=== PATIENT | female | born 1955 | race Caucasian/White ===

== ENCOUNTER 2017-09-28 08:32 | Inpatient (IN) ==
[2017-09-21 16:20] LABS: Appearance,Urine CLEAR; Bilirubin,Urine NEG (NEG); Color,Urine YELLOW; Glucose,Urine (UA) NEGATIVE (NEG); Leukocyte Esterase,Urine NEG /uL (NEG); Nitrate,Urine NEG (NEG); Protein,Urine NEG (NEG); Specific Gravity,Urine 1.021 (1.000-1.035); Urine Blood NEG mg/dL (<0.03); Urobilinogen,Urine NEG (NEG)
[2017-09-21 16:23] LABS: Basophils # (Auto) 0 K/mcL (0.0-0.3); Basophils % (Auto) 0.3 % (0.0-2.0); Eosinophils # (Auto) 0.5 K/mcL (0.0-0.7); Eosinophils % (Auto) 5.9 % (0.0-7.0); Granulocytes % (Auto) 75.7 % (38.0-78.0); Lymphocytes % (Auto) 10.7 % (15.5-49.0); Mean Cell Volume 87.7 fL (80.0-100.0); Mean Corpuscular HGB Conc 33.9 g/dL (31.0-36.0); Mean Corpuscular Hemoglobin 29.7 pg (26.0-34.0); Monocytes # (Auto) 0.7 K/mcL (0.1-0.9); Monocytes % (Auto) 7.4 % (1.0-12.0); Platelet Count 246 K/mcL (140-440); RBC 4.38 M/mcL (4.00-5.20); Red Cell Distribution Width 14.2 % (11.5-14.5)
[2017-09-21 16:35] LABS: Blood Urea Nitrogen 18 mg/dl (8-23)
[~2017-09-28 08:32] MED LIST: CELECOXIB 200 MG CAPSULE PO SCH; PREGABALIN 75 MG CAPSULE PO SCH; ceFAZolin 1 GM VIAL IV SCH; oxyCODONE 10 MG TAB.ER.12H PO SCH
[2017-09-28] MEDS ORDERED: ONDANSETRON 4 MG/2 ML VIAL IV ONE (11:14)
[2017-09-28] MEDS ORDERED: PROPOFOL 200 MG/20 ML VIAL IV ONE (11:14)
[2017-09-28] MEDS ORDERED: MIDAZOLAM 2 MG/2 ML VIAL IV ONE (11:14)
[2017-09-28] MEDS ORDERED: TRANEXAMIC ACID 1,000 MG/10 ML VIAL IV ONE ×2 (11:14→13:12)
[2017-09-28] MEDS ORDERED: fentaNYL 100 MCG/2 ML VIAL IV ONE (11:14)
[2017-09-28] MEDS ORDERED: KETAMINE 100 MG/ML ML IV ONE (11:14)
[2017-09-28] MEDS ORDERED: LIDOCAINE HCL/PF 100 MG/5 ML SYRINGE IV ONE (11:14)
[2017-09-28] MEDS ORDERED: GLYCOPYRROLATE 0.2 MG/ML VIAL IV ONE (11:14)
[2017-09-28] MEDS ORDERED: KETOROLAC 15 MG/ML VIAL IV PRN (12:37)
[2017-09-28] MEDS ORDERED: ONDANSETRON 4 MG/2 ML VIAL IV PRN ×2 (12:37→13:12)
[2017-09-28] MEDS ORDERED: METHOCARBAMOL 1,000 MG/10 ML VIAL IV PRN (12:37)
[2017-09-28] MEDS ORDERED: ACETAMINOPHEN 1,000 MG/100 ML BOTTLE IV ONE (12:37)
[2017-09-28] MEDS ORDERED: IPRATROPIUM/ALBUTEROL 3 ML AMPUL.NEB NEB PRN (12:37)
[2017-09-28] MEDS ORDERED: MEPERIDINE 25 MG/ML SYRINGE IV PRN (12:37)
[2017-09-28] MEDS ORDERED: PROMETHAZINE 25 MG/ML VIAL IV PRN (12:37)
[2017-09-28] MEDS ORDERED: BENZOCAINE/MENTHOL 1 LOZENGE PO PRN ×2 (12:37→13:12)
[2017-09-28] MEDS ORDERED: LACTATED RINGERS 1,000 ML IV SCH (12:45)
--- NOTE | 2017-09-28 13:11 | Brief Operative Note ---
Date of procedure: 09/28/17 Pre-op diagnosis: Right shoulder DJD Post-op diagnosis: same Procedure: 1) R total shoulder arthroplasty 2) R biceps tenodesis Grafts/Implants: Yes (Tornier aequalis 46 x 17 resurfacing, 40 large ) Anesthesia: GLMA Findings: large joint effusion, severe arthritis Complications: none Surgeon: Kelechi Lewis Discharge Rn: Nabeel Gonzalez Estimated blood loss (cc): 100 Specimens Removed/Pathology: none sent Condition: stable Disposition: PACU
[2017-09-28] MEDS ORDERED: KETOROLAC 30 MG/ML VIAL IV PRN (13:12)
[2017-09-28] MEDS ORDERED: FLEETS ADULT ENEMA PR PRN (13:12)
[2017-09-28] MEDS ORDERED: BISACODYL 10 MG SUPP.RECT PR PRN (13:12)
[2017-09-28] MEDS ORDERED: MAGNESIUM HYDROXIDE 30 ML ORAL.SUSP PO PRN (13:12)
[2017-09-28] MEDS ORDERED: HYDROmorphone 2 MG/ML SYRINGE IV PRN (13:12)
[2017-09-28] MEDS ORDERED: POLYETHYLENE GLYCOL 3350 17 GM PACKET PO PRN (13:12)
[2017-09-28] MEDS ORDERED: 0.9 % SODIUM CHLORIDE 1,000 ML IV SCH (13:15)
[2017-09-28] MEDS ORDERED: BUPIVACAINE W/EPI 0.5% 50 ML VIAL IJ ONE (13:16)
[2017-09-28] MEDS: fentaNYL 100 MCG/2 ML VIAL IV PRN ×4 (14:00→14:31)
--- NOTE | 2017-09-28 14:00 | Operative Note ---
DATE OF OPERATION: 09/28/2017 PREOPERATIVE DIAGNOSIS: Right shoulder severe osteoarthritis. POSTOPERATIVE DIAGNOSIS: Right shoulder severe osteoarthritis. PROCEDURE PERFORMED: 1. Right total shoulder arthroplasty using the Tornier Aequalis resurfacing head 46 x 17 mm and a large 40 Cortiloc Peg Glenoid. 2. Right biceps tenodesis. SURGEON: Kelechi Lewis MD. HUMAN RESOURCES PARTNER: Mihai Gonzalez PA-C. ANESTHESIA: General. DRAINS: None. SPECIMENS: None. COMPLICATIONS: None. BLOOD LOSS: 100 mL. POSTOPERATIVE CONDITION: Stable. INDICATIONS FOR SURGERY: This is a 62-year-old female who has had longstanding worsening right shoulder pain. Radiographs showed severe [id number] osteoarthritis. FINDINGS AT SURGERY: She had severe arthritis as well as very large joint effusion. PROCEDURE IN DETAIL: The patient had been seen preoperatively. Informed consent had been obtained after discussion of risks and benefits of surgery. Risks including, but not limited to, bleeding, possibly requiring transfusion; infection, possibly requiring implant removal and prolonged IV antibiotics; injury to nerves, blood vessels, and other surrounding structures, possibly resulting in numbness or weakness; anesthetic risks; incomplete or no resolution of symptoms; dislocation; fracture; stiffness; and possibility of needing further surgery. She understood these risks and wished to proceed. Correct operative site was marked in preoperative holding, and the patient was taken to the operating room and general anesthesia was induced. She was carefully positioned in the beach chair position and pressure points carefully padded. The right shoulder and upper extremity were then carefully prepped and draped in normal sterile fashion, and a time-out was performed verifying patient name, operative site, and plan. Ioban was used to cover all skin surfaces and then a standard deltopectoral incision was made with scalpel through skin and subcutaneous tissue. Hemostasis was obtained with Bovie cautery. Irrisept was irrigated and then we bluntly dissected down onto the cephalic vein. This was carefully dissected lateral to the deltoid and blunt finger dissection used then to develop the subdeltoid space. It was at this point we noted a large fluid-filled sac which when punctured released a large amount of joint fluid. We identified the biceps tendon exiting from underneath the pec, and we unroofed this up through the rotator interval. We then amputated the biceps off of the glenoid with Moore scissors. A curved osteotome was used to perform a lesser tuberosity osteotomy, and then we released the subscapularis the remainder of the way with the Bovie. A traction stitch was placed around this and then we delivered the humeral head out the anterior wound. We released capsule around the inferior neck and then a curved osteotome was used to remove osteophytes. We also had several loose bodies which were removed. Once this was completed, we then subluxed the humeral head posteriorly and began our exposure of the glenoid. She had quite a bit of synovitis. We removed the biceps stump as well as the labrum circumferentially. We also did a careful capsule release along the circumferential glenoid, carefully keeping Bovie right against bone. Inferiorly we protected with gentle retraction. We then marked our center of the glenoid and also measured our curvature. The 40 fit the curvature best as well a size large. We then placed our guide pin using the 10 degree posterior guide. We then started reaming until we had reached bone circumferentially. We then drilled our central peg and then our three peripheral pegs. We irrigated with Irrisept. Cement was mixed. Bone fragments from our reamings were packed in the flutes of the central peg. We then mixed antibiotic cement and injected this into the three peripheral peg holes and compressed with finger and then impacted the glenoid component. We held this absolutely still until cement had fully hardened. We then redislocated the humeral head. We sized this to a 46 and went ahead and used the guide to drill our central pin. We then placed this bicortical and then used their 46 x 17 head reamer until we had good bone contact throughout. We then did our three fin punch. We irrigated with Irrisept. The implant was opened. We pulse lavaged with saline and then impacted the implant until it was fully seated. We then made drill holes in the bicipital groove and used a #2 FiberWire around the lesser tuberosity through bone in a [id number] stitch over top of the lesser tuberosity and cut. We also closed the rotator interval with a #2 FiberWire. We then used our traction sutures and performed a biceps tenodesis with a free needle and amputated the proximal portion. We then did another Irrisept irrigation. After a minute pulse lavage, and then #1 Vicryl was used in a running stitch for closing the deltopectoral interval and then a final Irrisept irrigation was done. After a minute final pulse lavage, and then 2-0 Monocryl for subcutaneous and mary for skin. Xeroform and sterile dressing were applied. Arm was placed in an abductor immobilizer. The patient was awakened, extubated, and transferred to recovery in stable condition. [email or web address] Job ID: [id number] Doc ID: [id number] Kelechi Lewis MD
--- NOTE | 2017-09-28 14:04 | XRay Report ---
CLINICAL INFORMATION: Post-OP Total Shoulder COMPARISON: None. FINDINGS: Shoulder prostheses is anatomically aligned. No osseous abnormality. Soft tissue swelling seen as expected IMPRESSION: Negative Interpreted and Authenticated by: Teja Mo 09/28/17
[2017-09-28] MEDS ORDERED: METOPROLOL TARTRATE 5 MG/5 ML VIAL IV ONE ×2 (14:14→14:33)
[2017-09-28] MEDS ORDERED: hydrALAZINE 20 MG/ML VIAL IV ONE (14:42)
[2017-09-28] MEDS: 0.9 % SODIUM CHLORIDE 10 ML SYRINGE IV SCH (14:46)
[2017-09-28] MEDS ORDERED: hydrALAZINE 20 MG/ML VIAL ONE (14:52)
--- NOTE | 2017-09-28 15:14 | Discharge Summary ---
Providers - Providers Patient information: Note initiated : 09/28/17 at 3:10 pm Service Date, if different from initiated Date: [] Patient: Jolene Chen 62 y/o F admitted on 09/28/17 for Right Total Shoulder Arthroplasty. Chief Complaint: [] Discharge date: 09/29/17 Hospitalization Hospital course: Pt was admitted for R TSA. She underwent the procedure on the day of admission and was discharged on post-op day 1. She will f/u at [facility] in 2 weeks. She was provided appropriate pain meds and out-patient PT. Discharge diagnosis: R Shoulder osetoarthrosis Exam - Exam Clean and dry: Yes Weight bearing status: as tolerated Ortho Discharge - TSA - Patient Instructions Diet: Regular Diet Activity: non weight bearing Total Shoulder Protocol: Leave immobilizer in place except for bathing and ROM. Abduction pillow. Continue to wear sling until seen by physician. Codman Pendulum : These exercises use momentum produced by your body to move your shoulder joint. Bend your knees and shift your weight to your front leg, then back, allowing your arm to swing in the same directions. Using the same technique, alternately shift your weight between your right and left legs, allowing your arm to swing from side to side. These exercises are also performed in counterclockwise and clockwise circular motions. Typically these exercises are performed several times per day, for a set number repetitions or minutes, such as 20 times in a row or 5 minutes at a time. Dressing Care: May shower in 2 days - Follow Up Plan Disposition: Home, Self-Care Prognosis: Good Rehab Potential: Good Overall status at discharge: patient is progressing back to baseline - Orders For Discharge Prescriptions: HYDROcodone/APAP 10/325MG [[place] 10/325Mg] 1 - 2 tab PO Q4HP PRN #90 tab PRN Reason: Pain Level 3-6 Additional Discharge Orders: Physical Therapy at Discharge - TSA Location: Determined By Patient Pending Studies Resuscitation Status Full Code Diet Regular Diet Start TueSep 28 1314 Cefazolin Sodium (Ancef) 2 gm IV PREOP BRENDA Stop: 09/28/17 17:00 Last Admin: 09/28/17 11:31 Dose: 2 gm Celecoxib (Celebrex) 200 mg PO PREOP BRENDA Stop: 09/28/17 17:00 Last Admin: 09/28/17 09:47 Dose: 200 mg Sodium Chloride (Sodium Chloride 0.9%) 1,000 mls @ 100 mls/hr IV .Q10H BRENDA Last Admin: 09/28/17 14:46 Dose: 100 mls/hr Oxycodone HCl (Oxycontin) 10 mg PO PREOP BRENDA Stop: 09/28/17 17:00 Last Admin: 09/28/17 09:47 Dose: 10 mg Pregabalin (Lyrica) 75 mg PO PREOP BRENDA Stop: 09/28/17 17:00 Last Admin: 09/28/17 09:47 Dose: 75 mg Sodium Chloride (Saline Flush) 10 ml IV Q8 BRENDA Last Admin: 09/28/17 14:46 Dose:
[2017-09-28] MEDS: HYDROcodone/APAP 10/325MG TABLET PO PRN (17:42)
[2017-09-28] MEDS: DOCUSATE SODIUM 100 MG CAPSULE PO SCH (19:58)
[2017-09-28] MEDS ORDERED: HYDROCHLOROTHIAZIDE 25 MG TABLET PO SCH (21:00)
[2017-09-28] MEDS ORDERED: POTASSIUM CHLORIDE 20 MEQ TABLET PO SCH (21:00)
[2017-09-28] MEDS ORDERED: SENNOSIDES 1 TABLET PO SCH (21:00)
[2017-09-28] MEDS: ceFAZolin 1 GM VIAL IV SCH (23:52)
[2017-09-29] MEDS: 0.9 % SODIUM CHLORIDE 10 ML SYRINGE IV SCH ×2 (00:37→06:10)
[2017-09-29] MEDS: ceFAZolin 1 GM VIAL IV SCH (06:10)
[2017-09-29] MEDS: HYDROcodone/APAP 10/325MG TABLET PO PRN ×2 (06:24→11:07)
--- NOTE | 2017-09-29 07:51 | Discharge Summary ---
Providers - Providers Patient information: Note initiated : 09/29/17 at 7:50 am Service Date, if different from initiated Date: [] Patient: Jolene Chen 62 y/o F admitted on 09/28/17 for Right Total Shoulder Arthroplasty. Chief Complaint: [] Discharge date: 09/29/17 Hospitalization Hospital course: Pt admitted for a R TSA. Discharged post-op day 1. No complications. Discharge diagnosis: R SHoulder osetoarthrosis Ortho Discharge - TSA - Patient Instructions Diet: Regular Diet Activity: non weight bearing Total Shoulder Protocol: Leave immobilizer in place except for bathing and ROM. Abduction pillow. Continue to wear sling until seen by physician. Codman Pendulum : These exercises use momentum produced by your body to move your shoulder joint. Bend your knees and shift your weight to your front leg, then back, allowing your arm to swing in the same directions. Using the same technique, alternately shift your weight between your right and left legs, allowing your arm to swing from side to side. These exercises are also performed in counterclockwise and clockwise circular motions. Typically these exercises are performed several times per day, for a set number repetitions or minutes, such as 20 times in a row or 5 minutes at a time. - Follow Up Plan Disposition: Home, Self-Care Prognosis: Good Rehab Potential: Good - Orders For Discharge Prescriptions: HYDROcodone/APAP 10/325MG [Imogene 10/325Mg] 1 - 2 tab PO Q4HP PRN #90 tab PRN Reason: Pain Level 3-6 Additional Discharge Orders: Physical Therapy at Discharge - TSA Location: Determined By Patient Pending Studies Resuscitation Status Full Code Diet Regular Diet Start TueSep 28 131 Hydrocodone Bitart/Acetaminophen (Imogene 10/325mg) 0 tab PO Q4HP PRN PRN Reason: PAIN LEVEL 3-6 Last Admin: 09/29/17 06:24 Dose: 2 tab Admin: 09/28/17 17:42 Dose: 2 tab Docusate Sodium (Colace) 100 mg PO BID [facility] Last Admin: 09/28/17 19:58 Dose: 100 mg Hydrochlorothiazide (Oretic) 25 mg PO HS [facility] Last Admin: 09/29/17 00:37 Dose: Sodium Chloride (Sodium Chloride 0.9%) 1,000 mls @ 100 mls/hr IV .Q10H [facility] Last Admin: 09/28/17 14:46 Dose: 100 mls/hr Ondansetron HCl (Zofran) 4 mg IV Q4HP PRN PRN Reason: Nausea And Vomiting Last Admin: 09/28/17 17:51 Dose: 4 mg Potassium Chloride (Kdur) 20 meq PO HS [facility] Last Admin: 09/28/17 19:58 Dose: 20 meq Senna (Senokot) 2 tab PO HS [facility] Last Admin: 09/28/17 19:58 Dose: 2 tab Sodium Chloride (Saline Flush) 10 ml IV Q8 BRENDA Last Admin: 09/29/17 06:10 Dose: 10 ml Admin: 09/29/17 00:37 Dose: Not Given Admin: 09/28/17 14:46 Dose: Throat Lozenges (Cepacol) 1 lozenge PO PRN PRN PRN Reason: Sore Throat Last Admin: 09/28/17 20:27 Dose: 1 lozenge Shift Summary 09/29/17 04:24 Shift Summary by Desire Cantu Pt up with SBA in room, is SL. Minimal pain to right shoulder. Dressing CDI. Voiding adequate amts, PVR <10. Has no complaints at this time and will DC today as she is only authorized for a one day stay. Initialized on 09/29/17 04:24 - END OF NOTE
[2017-09-29] MEDS: DOCUSATE SODIUM 100 MG CAPSULE PO SCH (08:21)
[2017-09-29] MEDS ORDERED: FLU VACC QS2017-18 36MOS UP/PF 60 MCG/0.5 ML SYRINGE IM ONE (10:00)
== END 2017-09-29 11:15 | disposition home or self-care (01) | DRG 483 ==
LOC: MEDSUR 08:32
PROVIDERS: ADMIT Orthopaedic Surgery; ATTEND Orthopaedic Surgery

== ENCOUNTER 2018-09-01 10:00 | Inpatient (IN) ==
[2018-09-01 12:29] LABS: Basophils # (Auto) 0 K/mcL (0.0-0.3); Basophils % (Auto) 0.5 % (0.0-2.0); Eosinophils # (Auto) 0.2 K/mcL (0.0-0.7); Eosinophils % (Auto) 2.8 % (0.0-7.0); Granulocytes % (Auto) 73.8 % (38.0-78.0); Lymphocytes # (Auto) 0.9 K/mcL (1.5-4.8); Lymphocytes % (Auto) 13.3 % (15.5-49.0); Mean Cell Volume 88.4 fL (80.0-100.0); Mean Corpuscular HGB Conc 33.8 g/dL (31.0-36.0); Mean Corpuscular Hemoglobin 29.9 pg (26.0-34.0); Monocytes # (Auto) 0.6 K/mcL (0.1-0.9); Monocytes % (Auto) 9.6 % (1.0-12.0); Platelet Count 248 K/mcL (140-440); RBC 4.65 M/mcL (4.00-5.20); Red Cell Distribution Width 15.4 % (11.5-14.5)
[2018-09-01 12:49] LABS: Appearance,Urine CLEAR; Bilirubin,Urine NEG (NEG); Color,Urine YELLOW; Glucose,Urine (UA) NEGATIVE (NEG); Leukocyte Esterase,Urine NEG /uL (NEG); Protein,Urine NEG (NEG); Urine Blood NEG mg/dL (<0.03); Urobilinogen,Urine NEG (NEG)
[2018-09-01 13:03] LABS: Blood Urea Nitrogen 13 mg/dl (8-23)
[2018-09-01 14:20] LABS: Estimated Average Glucose(eAG) 114 mg/dL; Hemoglobin A1C 5.6 % HGB (4.0-6.0)
[2018-09-14] MEDS ORDERED: ceFAZolin 1 GM VIAL IV SCH (07:00)
[2018-09-14] MEDS ORDERED: oxyCODONE 10 MG TAB.ER.12H PO SCH (07:00)
[2018-09-14] MEDS ORDERED: PREGABALIN 75 MG CAPSULE PO SCH (07:00)
[2018-09-14] MEDS: CELECOXIB 200 MG CAPSULE PO SCH (08:01)
[2018-09-14] MEDS ORDERED: fentaNYL 250 MCG/5 ML VIAL IV ONE (09:20)
[2018-09-14] MEDS ORDERED: KETAMINE 100 MG/ML ML ONE (09:20)
[2018-09-14] MEDS ORDERED: GLYCOPYRROLATE 0.2 MG/ML VIAL IV ONE (09:20)
[2018-09-14] MEDS ORDERED: ONDANSETRON 4 MG/2 ML VIAL ONE (09:20)
[2018-09-14] MEDS ORDERED: LIDOCAINE HCL/PF 100 MG/5 ML SYRINGE IV ONE (09:20)
[2018-09-14] MEDS ORDERED: DEXAMETHASONE 10 MG/ML VIAL ONE (09:20)
[2018-09-14] MEDS ORDERED: PROPOFOL 200 MG/20 ML VIAL IV ONE (09:20)
[2018-09-14] MEDS ORDERED: PHENYLEPHRINE 10 MG/ML VIAL ONE (09:20)
[2018-09-14] MEDS ORDERED: MIDAZOLAM 5 MG/5 ML VIAL ONE (09:20)
[2018-09-14] MEDS ORDERED: HYDROmorphone 2 MG/ML VIAL ONE (09:20)
[2018-09-14] MEDS ORDERED: FLUMAZENIL 0.1 MG/ML ML IV PRN (10:21)
[2018-09-14] MEDS ORDERED: NALOXONE HCL 0.4 MG/ML VIAL IV PRN (10:21)
[2018-09-14] MEDS ORDERED: HYDROmorphone 2 MG/ML VIAL IV PRN (10:21)
[2018-09-14] MEDS ORDERED: MEPERIDINE 50 MG/ML INJECTION IM PRN (10:21)
[2018-09-14] MEDS ORDERED: ACETAMINOPHEN 1,000 MG/100 ML BOTTLE IV ONE (10:21)
[2018-09-14] MEDS ORDERED: LACTATED RINGERS 250 ML IV PRN (10:21)
[2018-09-14] MEDS ORDERED: BENZOCAINE/MENTHOL 1 LOZENGE PO PRN ×2 (10:21→11:35)
[2018-09-14] MEDS ORDERED: fentaNYL 100 MCG/2 ML VIAL IV PRN (10:21)
[2018-09-14] MEDS ORDERED: METHOCARBAMOL 1,000 MG/10 ML VIAL IV PRN (10:21)
[2018-09-14] MEDS ORDERED: MEPERIDINE 25 MG/ML SYRINGE IV PRN (10:21)
[2018-09-14] MEDS ORDERED: PROMETHAZINE 25 MG/ML VIAL IM PRN (10:21)
[2018-09-14] MEDS ORDERED: ONDANSETRON 4 MG/2 ML VIAL IV PRN ×2 (10:21→11:35)
[2018-09-14] MEDS ORDERED: IPRATROPIUM/ALBUTEROL 3 ML AMPUL.NEB NEB PRN (10:21)
[2018-09-14] MEDS ORDERED: LACTATED RINGERS 1,000 ML IV SCH (10:30)
--- NOTE | 2018-09-14 11:34 | Brief Operative Note ---
Date of procedure: 09/14/18 Pre-op diagnosis: Left shoulder severe OA Post-op diagnosis: same Procedure: 1)Left total shoulder arthroplasty 2)Biceps tenodesis Grafts/Implants: Yes (Tornier 10q23ff, cortiloc 50 L glenoid) Anesthesia: GETA Findings: severe arthritis Complications: none Surgeon: Kelechi Lewis Plate Conditioner: Nabeel Gonzalez Estimated blood loss (cc): 250 Specimens Removed/Pathology: none sent Condition: stable Disposition: PACU
[2018-09-14] MEDS ORDERED: TRANEXAMIC ACID 1,000 MG/10 ML VIAL IV ONE (11:35)
[2018-09-14] MEDS ORDERED: BISACODYL 10 MG SUPP.RECT PR PRN (11:35)
[2018-09-14] MEDS ORDERED: KETOROLAC 30 MG/ML VIAL IV PRN (11:35)
[2018-09-14] MEDS ORDERED: POLYETHYLENE GLYCOL 3350 17 GM PACKET PO PRN (11:35)
[2018-09-14] MEDS ORDERED: FLEETS ADULT ENEMA PR PRN (11:35)
[2018-09-14] MEDS ORDERED: MAGNESIUM HYDROXIDE 30 ML ORAL.SUSP PO PRN (11:35)
--- NOTE | 2018-09-14 12:02 | XRay Report ---
CLINICAL INFORMATION: Left shoulder arthroplasty TECHNIQUE: AP and Y view COMPARISON: None. FINDINGS: Status post left shoulder arthroplasty. Alignment is anatomic. There is postsurgical soft tissue gas. There are skin mary overlying the left shoulder IMPRESSION: Status post left shoulder arthroplasty. Interpreted and Authenticated by: Teja Shaffer 09/14/18
--- NOTE | 2018-09-14 13:14 | Operative Note ---
DATE OF OPERATION: 09/14/2018 PREOPERATIVE DIAGNOSIS: Left shoulder severe osteoarthritis. POSTOPERATIVE DIAGNOSIS: Left shoulder severe osteoarthritis. PROCEDURE PERFORMED: 1. Left total shoulder arthroplasty. 2. Bicep tenodesis. IMPLANTS: Tornier Aequalis resurfacing head 46 x 17 and a Cortiloc glenoid 50 large curvature. SURGEON: Kelechi Lewis MD SURFACE SHIP USW SUPERVISOR: Mihai Gonzalez PA-C. ANESTHESIA: General. COMPLICATIONS: None. DRAINS: None. SPECIMENS: None. BLOOD LOSS: 250 mL POSTOPERATIVE CONDITION: Stable. INDICATIONS FOR SURGERY: This is a 63-year-old female who has had longstanding progressive worsening shoulder pain. Radiographs showed severe daaa-jt-[id number] osteoarthritis with very large inferior humeral head osteophyte. FINDINGS AT SURGERY: She did have severe arthritis with an extremely large inferior humeral head osteophyte. Post implantation showed good component position. PROCEDURE IN DETAIL: The patient had been seen preoperatively and informed consent had been obtained after discussion of risks and benefits of surgery. Risks including, but not limited to, bleeding; infection, possibly requiring implant removal and prolonged IV antibiotics; injury to nerves, blood vessels other surrounding structures; anesthetic risks; incomplete or no resolution of symptoms; stiffness; swelling; pain, fracture; possibility of needing further revision surgery. She understood these risks and wished to proceed. Correct operative site was marked and the patient was taken to the operating room. General anesthesia was induced. She was carefully positioned in beach chair position and pressure points carefully padded. The left shoulder and upper extremity were then carefully prepped and draped in normal sterile fashion. Skin surfaces were covered with Ioban. A standard deltopectoral incision was made with a scalpel through skin and subcutaneous tissue. Hemostasis was obtained with Bovie cautery. Careful blunt dissection was taken down onto cephalic vein. We then dissected this lateral with the deltoid. We then developed the subdeltoid space and Marino deltoid retractor placed. Lateral edge of the conjoint tendon was identified and blue handle retractor placed underneath. We then irrigated with IrriSept, and then incised and unroofed the biceps tendon sheath. We then went ahead and amputated the biceps off of the superior glenoid. We then used a large osteotome to perform a lesser tuberosity osteotomy. We then used a traction stitch around the lesser tuberosity. We went ahead and started dislocating the humeral head out anteriorly and at this point, a very large osteophyte was impeding dislocation, so we used a curved osteotome and amputated a large portion of it off the humerus. We then were able to dislocate the head out. We removed the remaining osteophyte. We then subluxed the humerus posteriorly and used the ___ retractor to expose the glenoid. We then circumferentially excised the labrum and also released capsule inferiorly. At this point, we were able to identify the very large inferior humeral osteophyte that we had osteotomized and this was removed. We then identified the center point of the glenoid using the 10 degree angled guide. Prior to placing the guidepin we did measure the radius of curvature which was the large. We then went ahead and placed the guidepin and then reamed until we had circumferential contact. We then drilled the central hole. We then removed the guidepin and placed the peripheral hole drill guide and draped drilled our three peripheral holes. The trial was checked so we went ahead and opened the definitive implant. We irrigated the joint with IrriSept. The cement was mixed. We placed DBX in the central flutes of the glenoid. We went ahead and then impacted the implant after pressurizing the three peripheral holes with cement. We held this still until cement had fully hardened. We then dislocated the humeral head again. She had a 46 implant on her opposite side. We went ahead and trialed the 46. It fit very well except for some slight overhang anteriorly where we had done the osteotomy of the lesser tuberosity, so we went ahead and placed a guidepin and reamed a 46 x 17. We placed the trial and it seated circumferentially so we went ahead and used the tri fin punch and then the implant was opened. We irrigated the humeral head copiously with IrriSept, after a minute copiously with saline and then impacted the implant until it was fully seated. Drill holes were made in the bicipital groove and we repaired the lesser tuberosity with a #2 FiberWire [id number]. We also closed the rotator interval with a #2 FiberWire [id number]. We then did another IrriSept irrigation and after a minute pulse lavage and then 0 Vicryl was used. We also did a biceps tenodesis with a FiberWire as a soft tissue tenodesis as well. We then used a 0 Vicryl running stitch to close the deltopectoral interval, 2-0 Monocryl was used for subcutaneous and mary for skin. Xeroform sterile dressings were applied. Arm was placed in her immobilizer that she brought with her. She was then awakened, extubated, and transferred to recovery in stable condition. [email or web address] Job ID: [id number] Doc ID: [id number] Kelechi Lewis MD
[2018-09-14] MEDS: 0.9 % SODIUM CHLORIDE 10 ML SYRINGE IV SCH ×2 (14:59→20:54)
[2018-09-14] MEDS: 0.9 % SODIUM CHLORIDE 1,000 ML IV SCH (14:59)
[2018-09-14] MEDS: HYDROcodone/APAP 10/325MG TABLET PO PRN ×2 (16:17→16:42)
[2018-09-14] MEDS: ceFAZolin 1 GM VIAL IV SCH (16:20)
[2018-09-14] MEDS: DOCUSATE SODIUM 100 MG CAPSULE PO SCH (20:53)
[2018-09-14] MEDS ORDERED: SENNOSIDES 1 TABLET PO SCH (21:00)
[2018-09-14] MEDS ORDERED: POTASSIUM CHLORIDE 20 MEQ TABLET PO SCH (21:00)
[2018-09-14] MEDS ORDERED: HYDROCHLOROTHIAZIDE 25 MG TABLET PO SCH (21:00)
[2018-09-14] MEDS ORDERED: ATORVASTATIN 20 MG TABLET PO SCH (21:00)
[2018-09-15] MEDS: 0.9 % SODIUM CHLORIDE 1,000 ML IV SCH ×2 (00:12→07:47)
[2018-09-15] MEDS: ceFAZolin 1 GM VIAL IV SCH (00:48)
[2018-09-15] MEDS: HYDROcodone/APAP 10/325MG TABLET PO PRN (02:14)
[2018-09-15] MEDS: 0.9 % SODIUM CHLORIDE 10 ML SYRINGE IV SCH (05:22)
[2018-09-15] MEDS: CELECOXIB 200 MG CAPSULE PO SCH (08:47)
[2018-09-15] MEDS: DOCUSATE SODIUM 100 MG CAPSULE PO SCH (08:50)
--- NOTE | 2018-09-15 10:29 | Discharge Summary ---
Ortho Discharge - TSA - Patient Instructions Diet: Regular Diet Activity: non weight bearing Total Shoulder Protocol: Leave immobilizer in place except for bathing and ROM. Abduction pillow. Continue to wear sling until seen by physician. Codman Pendulum : These exercises use momentum produced by your body to move your shoulder joint. Bend your knees and shift your weight to your front leg, then back, allowing your arm to swing in the same directions. Using the same technique, alternately shift your weight between your right and left legs, allowing your arm to swing from side to side. These exercises are also performed in counterclockwise and clockwise circular motions. Typically these exercises are performed several times per day, for a set number repetitions or minutes, such as 20 times in a row or 5 minutes at a time. Dressing Care: May shower in 2 days, Aquacel Ag - leave on for 5 days Patient Education: Shoulder Arthroplasty (DC) Additional Instructions: Discharge Instructions: Do the exercises at home that physical therapy gave you. No weight bearing with left arm/hand. Keep your arm in the immobilizer except for showering and exercises. You are scheduled to start physical therapy at [facility] ) on Aug. Take your prescription, photo ID, insurance cards, and current medication list with you to your first physical therapy appointment. Take your prescription to pick and shovel man any medication. You have the Aquacel Ag dressing, leave in place for 7 days then remove. If dressing becomes soiled (turns black), remove and use gauze 4x4 dressing and silvasorb ointment and change daily. Keep incision clean and dry. You may start showering on post op day #2. To avoid constipation while taking any narcotic pain medication, take an over the counter stool softener/laxative. Use ice packs as directed, on for 20 minutes at a time throughout the day. This and elevation will help with pain and swelling. Call your physician for fevers above 100.5 or pain not controlled by medication. Your prescriptions are with your discharge information. Some medications were electronically transmitted to your pharmacy of choice. Take Aspirin twice daily, for 30 days, as prescribed to prevent blood clots ( see medication list). - Follow Up Plan Follow Up Appointments: Kelechi Lewis MD [Physician] - 09/28/18 10:10 am Disposition: Home, Self-Care Prognosis: Good Rehab Potential: Good - Orders For Discharge Additional Discharge Orders: Physical Therapy at Discharge - [facility] Location: None Selected Brace/Splint Location: None Selected
--- NOTE | 2018-09-15 10:42 | Orthopedic Progress Note ---
Subjective Patient information: Note initiated : 09/15/18 at 10:40 am Service Date, if different from initiated Date: [] Patient: Jolene Chen 63 y/o F admitted on 09/14/18 for Left Total Shoulder Arthroplasty. Chief Complaint: [] Principal diagnosis: s/p L total shoulder Interval history: no c/o, wants to go home Objective Vital signs: Vital Signs Temp Pulse Pulse Resp BP BP Pulse Ox 09/15/18 08:00 97.7 F 72 16 112/71 97 09/15/18 07:42 72 09/15/18 07:00 72 09/15/18 03:55 97.7 F 72 12 124/76 96 09/14/18 23:15 98.5 F 91 H 16 137/86 93 09/14/18 20:00 97.5 F 96 H 18 132/85 94 09/14/18 15:35 94 H 09/14/18 15:33 94 H 132/82 95 09/14/18 15:18 95 H 133/85 97 09/14/18 15:06 95 H 127/82 97 09/14/18 15:03 95 H 121/73 99 09/14/18 14:48 93 H 133/78 97 09/14/18 14:33 95 H 126/80 95 09/14/18 14:18 95 H 131/82 96 09/14/18 14:03 101 H 131/85 94 09/14/18 13:48 93 H 125/76 98 09/14/18 13:33 101 H 135/84 96 09/14/18 13:18 92 H 133/83 101 H 09/14/18 13:03 91 H 138/84 99 09/14/18 12:48 92 H 148/88 99 09/14/18 12:33 105 H 145/85 94 09/14/18 12:16 97.5 F 99 H 12 147/90 95 09/14/18 12:00 107 H 15 154/85 92 09/14/18 11:46 100 H 18 126/66 96 09/14/18 11:40 99 H 15 118/54 96 09/14/18 11:35 99 H 8 L 110/51 96 09/14/18 11:31 97.3 F 89 10 L 106/49 96 Intake and Output 09/14/18 09/15/1809/15/18 21:59 05:59 13:59 Intake Total 480 / 480 1472 / 1472 Output Total 875 / 875 1000 / 1000 Balance -395 / -395 472 / 472 Intake: IV 922 / 922 Sodium Chloride 0.9% 1,000 ml @ 922 / 922 100 mls/hr IV .Q10H BRENDA Rx#: [id number] Oral 480 / 480 550 / 550 Output: Void Amount 875 / 875 1000 / 1000 Other: Meal Dinner Percent of Meal Consumed 75% Feeding Ability Independent Urine Appearance Clear Urine Color Pale Urine Odor Normal # Voids 1 Weight 204 lb Intake & Output: Intake & Output 09/14/18 09/15/18 09/15/18 21:59 05:59 13:59 Intake Total 480 / 480 1472 / 1472 Output Total 875 / 875 1000 / 1000 Balance -395 / -395 472 / 472 Weight 204 lb Intake: IV 922 / 922 Sodium Chloride 0.9% 1,000 ml @ 922 / 922 100 mls/hr IV .Q10H BRENDA Rx#: [id number] Oral 480 / 480 550 / 550 Output: Void Amount 875 / 875 1000 / 1000 Other: Meal Dinner Percent of Meal Consumed 75% Feeding Ability Independent Urine Appearance Clear Urine Color Pale Urine Odor Normal # Voids 1 Dressing: Yes clean, Yes dry Neurological exam IM: Yes neurovascular intact - Labs CBC & BMP: 09/01/18 10:59 09/01/18 10:59 Labs: 09/01/18 10:59 Hgb 13.9 Hct 41.1 Assessment and Plan (1) Status post total shoulder arthroplasty POD#1-feels good, wants to go home Status: Acute
== END 2018-09-15 13:00 | disposition home or self-care (01) | DRG 483 ==
LOC: MEDSUR 09-14 07:04
PROVIDERS: ADMIT Orthopaedic Surgery; ATTEND Orthopaedic Surgery
CPT/HCPCS: 97161